=== PATIENT | female | born 1950 ===

== ENCOUNTER 2020-04-01 05:55 | Day surgery (SDC) | payer OTHER ==
[~2020-04-01 05:55] MED LIST: ADULT LOW DOSE81 M1 PO; ALBUTEROL; ALL DAY ALLERGY10 M3 PO; AMITRIPTYLINE H25 MG PO; ARIMIDEX PO; ATACAND16 MG PO; BREO; GLIPIZIDE XL10 MG PO; LIRICA PO; METFOR PO; METOPROLOL PO; NEXIUM40 M1 PO; PROVASTATIN PO; RESTORIL30 M1 PO; SINGULAIR10 MG PO; SYNTHROID88 MCG; VITAMIN B12 PO; VITAMIN C PO; VITAMIN D PO; ZETIA10 MG PO
== END 2020-04-01 10:55 | disposition home or self-care (01) ==
LOC: CIR.AMB 05:55
PROVIDERS: ATTEND Orthopaedic Surgery Hand Surgery
DX: D21.11 Benign neoplasm of connective and other soft tissue of right upper limb, including shoulder (principal); M65.331 Trigger finger, right middle finger; Z20.828 Contact with and (suspected) exposure to other viral communicable diseases